=== PATIENT | male | born 1995 | race Hispanic/Latino ===

== ENCOUNTER 2025-06-07 11:10 | Emergency (ER) | payer OTHER ==
[~2025-06-07] VITALS: Ht 180.3 cm; Wt 77.1 kg
[2025-06-07] MEDS: TRIAMCINOLONE ACETONIDE 40 MG/ML 1ML VIAL IM STA (12:06)
[2025-06-07] MEDS: ORPHENADRINE 60MG/2ML IM STA (12:06)
[2025-06-07] MEDS: LIDOCAINE 4% ADH..PATCH TP STA (12:06)
--- NOTE | 2025-06-07 13:13 | ERN ---
ED Note History of Present Illness Stated Complaint: BACK PAIN Chief Complaint: Back Pain-No Injury Time Seen by MD: 11:13 Time Seen by Midlevel: 11:15 Dictation: 30-year-old male with a chronic back pain comes in complaining of lower back pain that started today. Patient states he has had this problem on and off for the last 15 years. Denies any recent injuries or falls. Denies any numbness tingling or saddle paresthesias. Allergies: Coded Allergies: No Known Drug Allergies (Unverified Allergy, Unknown, 06/07/25) Past Medical History Past Medical History: Other Additional Past Medical Hx: CHRONIC BACK PAIN Surgical History: None Review of System Dictation Constitutional: Negative for fever,chills, and weight loss Eyes: Negative for injury, pain,redness, and discharge ENT: Negative for injury,pain or swelling Cardiovascular: Negative for chest pain, palpitations, and edema Respiratory: Negative for shortness of breath, cough, and wheezing, Abdomen/GI: Negative for abdominal pain, nausea, vomiting, diarrhea, and constipation Back: Negative for injury and pain : Negative for injury, bleeding and discharge MS/Extremity: Negative for injury and deformity Skin: Negative for rash, and discoloration Neuro: Negative for headache, weakness, numbness, tingling, and seizure Psych: Negative for suicide ideation, homicidal ideation, and hallucinations Review of Systems: was completed Initial Vital Sign VS Vital Signs Date Time Temp Pulse Resp B/P (MAP) Pulse Ox O2 Delivery O2 Flow Rate FiO2 06/07/25 11:14 98.2 86 16 140/90 99 Room Air 0 06/07/25 12:18 21 Physical Exam Dictation General: awake, alert, NAD Head/Face: Normocephalic, atraumatic Eyes: PERRL, EOMI, vision at baseline ENT: oral cavity clear, TMs clear, no signs of infection Neck: Trachea midline, supple, no nuchal rigidity Cardiovascular: RRR, normal S1/S2, No MRGs, no JVD Respiratory: CTAB, no respiratory distress, No rales or wheezes Abdomen: Soft, non-tender, non-distended, normal bowel sounds, no guarding or rebound. Skin: Warm, dry, normal turgor, no rash ,superficial abrasions to the occipital area MS/Extremity: Pulses equal, no cyanosis, neurovascular intact, FROM Neuro: COAx4, GCS 15, strength 5/5, CN 2-12 intact, normal cerebellar exam, normal gait, Psych: Normal behavior, mood, and affect normal ED Course ED Course Orders Procedure Category Date Status Time Lidocaine (Lidocaine PHA 06/07/25 Complete Patch 4%) 11:17 Triamcinolone Acet PHA 06/07/25 Complete 40mg/Ml 1ml (Kenalog 11:17 Orphenadrine Citrate PHA 06/07/25 Complete (Norflex) 11:17 Ketorolac PHA 06/07/25 Complete Tromethamine 15mg/Ml 11:17 Acetaminophen With PHA 06/07/25 Complete Codeine (Tylenol-Code 11:17 Current Medications Medications (Trade) Dose Ordered Sig/Farhana Route PRN Reason Start Time Stop Time Status Last Admin Dose Admin Acetaminophen/ Codeine Phosphate (TYLenol-coDEINE TAB) 1 tab ONCE STAT PO 06/07/25 11:17 06/07/25 11:20 DC 06/07/25 12:06 Ketorolac Tromethamine (toRADol) 15 mg ONCE STAT IM 06/07/25 11:17 06/07/25 11:21 DC 06/07/25 12:07 Lidocaine (Lidocaine Patch 4%) 1 each ONCE STAT TP 06/07/25 11:17 06/07/25 11:20 DC 06/07/25 12:06 Orphenadrine Citrate (Norflex) 60 mg ONCE STAT IM 06/07/25 11:17 06/07/25 11:20 DC 06/07/25 12:06 Triamcinolone Acetonide (Kenalog 40) 40 mg ONCE STAT IM 06/07/25 11:17 06/07/25 11:21 DC 06/07/25 12:06 Vital Signs Date Time Temp Pulse Resp B/P (MAP) Pulse Ox O2 Delivery O2 Flow Rate FiO2 06/07/25 12:18 98.2 84 16 135/85 98 Room Air* 0 21 06/07/25 11:14 98.2 86 16 140/90 99 Room Air 0 Medical Decision Making MDM MDM: 30-year-old male with a chronic back pain comes in complaining of lower back pain that started today. Patient states he has had this problem on and off for the last 15 years. Denies any recent injuries or falls. Denies any numbness tingling or saddle paresthesias. After medications patient states he feels some relief. We will discharge patient with the medications to take it home and have him follow up outpatient with PCP. Discussed on signs and symptoms of when to return back to the ER like weakness, tingling, numbness. Patient verbalized understanding, answered all questions. Differential diagnosis: Chronic back pain, muscle spasm, muscle strain Rationale: Tests considered and ordered secondary to shared decision making include: labs, ECG and radiology Previous outside records reviewed: Old ER visits. Risk of complication and/or morbidity or mortality of patient management: None Medications-Per medication reconciliation Need for hospitalization: Patient does meet criteria for hospitalization. Need for emergency major/minor surgery: No There are no social concerns with this patient. Prescription drug management Prescriptions will include symptomatic care Patient's prior external medical records from other ER visits were reviewed by me as indicated. Prior testing and results from previous visits were reviewed. Prior tests were taken into account with medical decision making and resource utilization, independent historian/historians were used to obtain complete medical history. I independently interpreted the test that were performed, results were reviewed by me and considered findings on radiology if ordered. Medical management and examination interpretation discussions were had by me with other qualified healthcare professionals as indicated for the patient's care. DX & DISP Disposition: Discharge Departure Impression: Primary Impression: Chronic back pain Condition: Stable Scripts Lidocaine (Lidocaine) 4 % Adh..patch 1 PATCH TP DAILY for 10 Days, #10 PATCH 0 Refills Prov: ZAC WANG NP 06/07/25 Ketorolac Tromethamine (Ketorolac Tromethamine) 10 Mg Tablet 1 TAB PO Q6HPRN PRN for pain for 5 Days, #20 TAB 0 Refills Prov: ZAC WANG NP 06/07/25 Methocarbamol (Methocarbamol) 1,000 Mg Tablet 1000 MG PO TID for 7 Days, #21 TAB Prov: ZAC WANG NP 06/07/25 Additional Instructions: Take medications as prescribed. Rest, you can apply heat to help with the pain. Also follow up with PCP, return to the hospital if you have any worsening symptoms. Referrals: SELF,REFERRAL (PCP) Time of Disposition: 13:31 I have reviewed the case, and I agree with, Diagnosis and Plan ZAC WANG NP Jun 07, 2025 13:13
[2025-06-07] MEDS ORDERED: KETO10TA2 PO (13:33)
[2025-06-07] MEDS ORDERED: METH100054 PO (13:33)
[2025-06-07] MEDS ORDERED: LIDO1ADH82 TP (13:33)
[2025-06-07 13:48] VITALS: BP 130/86; PULSE 82; RESP 16; TEMP 98.3; O2SAT 98
== END 2025-06-07 13:48 | disposition home or self-care (01) ==
LOC: EDH 11:10
DX: G89.29 Other chronic pain (principal); M54.50 Low back pain, unspecified
CPT/HCPCS: 99284; 96372 ×3; J1885; J3301; J2360